=== PATIENT | male | born 1965 | race Caucasian/White ===

== ENCOUNTER 2016-06-30 16:06 | Outpatient (CLI) | payer BC ==
[2016-06-30 17:57] LABS: ALT (SGPT) 25 U/L (0-55); AST (SGOT) 57 U/L (5-34); Alkaline Phosphatase 120 U/L (40-150); Anion Gap 12 mmol/L (10-20); BUN (Urea Nitrogen) 9 mg/dL (8.4-25.7); Bilirubin, Direct 1.1 mg/dL (0.1-0.3); Bilirubin, Total 2.2 mg/dL (0.2-1.2); Calc. Creatinine Clearance 0 mL/min (70-130); Calcium 8.2 mg/dL (7.8-10.44); Carbon Dioxide 24 mmol/L (22-29); Chloride 110 mmol/L (98-107); Estimated GFR-MDRD Greater than 90; Iron 13 ug/dL (65-175); Protein, Total 7.1 g/dL (6.0-8.3)
[2016-06-30 19:13] LABS: PTT 37.6 SEC (22.9-36.1); Prothrombin Time 17.6 SEC (12.0-14.7)
[2016-06-30 19:46] LABS: #Basophils 0.1 thou/uL (0.0-0.2); #Lymphocytes 0.9 thou/uL (1.20-3.40); #Monocytes 0.3 thou/uL (0.11-0.59); #Neutrophils 1.2 thou/uL (1.40-6.50); %Basophils 2.7 % (0.0-1.0); %Eosinophils 0.5 % (0.0-10.0); %Lymphocytes 34.4 % (21.0-51.0); %Monocytes 12.3 % (0.0-10.0); Hematocrit 29.2 % (42.0-52.0); Mean Platelet Volume 13.9 fL (7.4-10.4); Red Blood Cell (RBC) Count 3.59 mill/uL (4.70-6.10); White Blood Cell (WBC) Count 2.5 thou/uL (4.8-10.8)
== END 2016-06-30 16:07 | disposition home or self-care (01) ==
LOC: NAV LAB 16:06
PROVIDERS: ATTEND Orthopaedic Surgery
DX: K74.60 Unspecified cirrhosis of liver (principal)
CPT/HCPCS: 36415; 80048; 80076; 82728; 83540; 83550; 85025; 85610; 85730

== ENCOUNTER 2016-07-19 19:10 | Outpatient (CLI) | payer BC ==
[2016-07-19 20:09] LABS: Prothrombin Time 19.1 SEC (12.0-14.7)
[2016-07-19 20:10] LABS: PTT 30.5 SEC (22.9-36.1)
[2016-07-19 20:11] LABS: #Basophils 0.1 thou/uL (0.0-0.2); #Lymphocytes 0.8 thou/uL (1.20-3.40); #Monocytes 0.6 thou/uL (0.11-0.59); #Neutrophils 2.4 thou/uL (1.40-6.50); %Basophils 1.6 % (0.0-1.0); %Eosinophils 0.4 % (0.0-10.0); %Lymphocytes 20.1 % (21.0-51.0); %Monocytes 15.9 % (0.0-10.0); Hematocrit 34.4 % (42.0-52.0); Mean Platelet Volume 13.3 fL (7.4-10.4); White Blood Cell (WBC) Count 3.8 thou/uL (4.8-10.8)
[2016-07-19 20:16] LABS: ALT (SGPT) 17 U/L (0-55); AST (SGOT) 40 U/L (5-34); Alkaline Phosphatase 102 U/L (40-150); Anion Gap 16 mmol/L (10-20); BUN (Urea Nitrogen) 20 mg/dL (8.4-25.7); Bilirubin, Total 2.3 mg/dL (0.2-1.2); Calc. Creatinine Clearance 0 mL/min (70-130); Calcium 8.2 mg/dL (7.8-10.44); Carbon Dioxide 17 mmol/L (22-29); Chloride 108 mmol/L (98-107); Estimated GFR-MDRD 69; Iron 41 ug/dL (65-175)
== END 2016-07-19 19:11 | disposition home or self-care (01) ==
LOC: NAV LAB 19:10
PROVIDERS: ATTEND Orthopaedic Surgery
DX: K74.60 Unspecified cirrhosis of liver (principal)
CPT/HCPCS: 80048; 80076; 82728; 83540; 85025; 85610; 85730

== ENCOUNTER 2016-07-21 04:26 | Emergency (ER) | payer BC ==
[2016-07-21] MEDS ORDERED: Norepinephrine 8 MG/0.9% NS 250 ML ONE (04:43)
[2016-07-21] MEDS ORDERED: Atropine Sulfate 1 mg/10 ml Syringe ONE ×2 (04:45→09:00)
[2016-07-21 05:24] LABS: Anion Gap 25 mmol/L (10-20)
[2016-07-21 05:32] LABS: Troponin I 0.035 ng/mL (< 0.028)
[2016-07-21 05:33] LABS: Band 5 % (5-11); Hematocrit 38.3 % (42.0-52.0); Mean Platelet Volume 10.9 fL (7.4-10.4); Neutrophil 33 % (42-75)
[2016-07-21 05:34] LABS: ALT (SGPT) 21 U/L (0-55); AST (SGOT) 44 U/L (5-34); Alkaline Phosphatase 93 U/L (40-150); BUN (Urea Nitrogen) 29 mg/dL (8.4-25.7); Bilirubin, Total 2.1 mg/dL (0.2-1.2); Calc. Creatinine Clearance 0 mL/min (70-130); Calcium 8.1 mg/dL (7.8-10.44); Carbon Dioxide 12 mmol/L (22-29); Chloride 110 mmol/L (98-107); Estimated GFR-MDRD 32; Protein, Total 5.1 g/dL (6.0-8.3)
[2016-07-21] MEDS ORDERED: DOPamine 400 MG/D5W 250 ML 250 ML ONE (05:37)
[2016-07-21 05:45] LABS: Blood, Urine Moderate (Negative); Glucose, Urine (Dipstick) Negative (Negative); Ketone, Urine Trace mg/dL (Negative); Nitrite Negative (Negative); Protein, Urine (Dipstick) > or equal to 300 mg/dL (Neg-Trace); Urobilinogen 0.2 mg/dL (0.2-1.0)
[2016-07-21 05:48] LABS: Bacteria/HPF 2+ HPF (None Seen); Bilirubin Negative (Negative); RBC/HPF 21-50 HPF (0-3)
[2016-07-21 06:19] LABS: Modified Allen's Test NOT DONE; Vent NO
[2016-07-21 06:35] LABS: Anion Gap 27 mmol/L (10-20); BUN (Urea Nitrogen) 28 mg/dL (8.4-25.7); Calc. Creatinine Clearance 0 mL/min (70-130); Calcium 6.9 mg/dL (7.8-10.44); Carbon Dioxide 14 mmol/L (22-29); Chloride 109 mmol/L (98-107); Estimated GFR-MDRD 30
[2016-07-21] MEDS ORDERED: Magnesium Sulfate 2 GM/NS 0.9% 50 ML BAG ONE (07:30)
[2016-07-21] MEDS ORDERED: Sodium Chloride 0.9% 0 ML ONE (07:31)
[2016-07-21] MEDS ORDERED: EPINEPHrine 1 MG/ML VIAL ONE (07:41)
[2016-07-21] MEDS ORDERED: Sodium Chloride 0.9% 250 ML 250 ML ONE (07:45)
--- NOTE | 2016-07-21 08:27 | RAD ---
FRONTAL VIEW CHEST: Indication: FINDINGS: Extensive artifact overlying the chest does preclude reliable assessment. There is an endotracheal tube terminating at the level of the thoracic inlet. Generalized hazy density of the right hemithor ax. Patchy opacity at the left base. Cardiac silhouette and mediastinal structures are accentuated . There is prominence in the perihilar vasculature. Evaluation was limited. IMPRESSION: 1. Suboptimal exam due to extensive artifacts. Endotracheal tube resides at the thoracic inlet leve l. 2. Recommend follow up with removal of the extensive artifact for reliable assessment. POS: JOSHUA
[2016-07-21] MEDS ORDERED: Calcium Chloride 1 GM/10 ML Abboject SYRINGE ONE (09:00)
[2016-07-21] MEDS ORDERED: Sodium Bicarb 50 MEQ/50 ML Abboject 8.4% SYRINGE ONE (09:00)
[2016-07-21] MEDS ORDERED: Dextrose 50% Abboject 50 ML SYRINGE ONE (09:00)
[2016-07-21] MEDS ORDERED: Lidocaine 2% PF 100 mg/5 ml Syringe ONE (09:00)
[2016-07-21] MEDS ORDERED: Magnesium 5 GM/10 ML VIAL ONE (09:00)
[2016-07-21] MEDS ORDERED: EPINEPHrine 1 MG/10 ML Abboject SYRINGE ONE (09:00)
== END 2016-07-21 11:51 | disposition expired ==
LOC: NAV ERS 04:26
DX: I46.9 Cardiac arrest, cause unspecified (principal)
CPT/HCPCS: 36415; 51702; 71010; 80053; 81003; 81015; 82553; 82805; 84484; 85025; 85379; 99292; B4083; J0171; J0461; J1265; J2001; J3475; J7050